=== PATIENT | male | born 1955 | race Caucasian/White ===

== ENCOUNTER → 2020-07-24 | Outpatient (CLI) | payer OTHER ==
[~2020-07-24] MED LIST: AMLODIPINE10 MG PO; CEPHALEXIN500 M1 PO; SUNMARK OMEPRAZ20 MG PO; VITAMIN D-32000 UNIT PO
[2020-07-24 10:37] LABS: BASO # 0.1 10*3/uL (0.0-0.1); BASO % 0.8 % (0.0-1.0); EOS # 0.3 10*3/uL (0.0-0.4); EOS % 3.4 % (1.0-4.0); HEMATOCRIT 46.4 % (42.0-52.0); LYMPH # 2.3 10*3/uL (1.3-4.4); LYMPH % 29.8 % (27.0-41.0); MEAN CELL VOLUME 89.9 fl (80.0-94.0); MEAN CORPUSCULAR HGB 30.4 pg (27.0-31.0); MEAN CORPUSCULAR HGB CONC 33.8 g/dl (33.0-37.0); MEAN PLATELET VOLUME 10.1 fl (9.6-12.3); MONO # 0.6 10*3/uL (0.1-1.0); MONO % 7.4 % (3.0-9.0); NEUT # 4.4 10*3/uL (2.3-7.9); NEUT % 58.3 % (47.0-73.0); PLATELET COUNT AUTOMATED 258 10*3/uL (130-400); RED BLOOD COUNT 5.16 10*6/uL (4.50-5.90); RED CELL DISTRI WIDTH 12.2 % (0-14.5); WHITE BLOOD COUNT 7.6 10*3/uL (4.8-10.8)
[2020-07-24 11:03] LABS: ALBUMIN 3.2 gm/dl (3.1-4.5); BUN 10 mg/dl (7-24); CHLORIDE 104 mmol/L (98-107); CHOLESTEROL 188 mg/dL (<200); CREATININE 0.74 mg/dL (0.70-1.30); HDL CHOLESTEROL 38 mg/dl (40-60); LDL CHOLESTEROL 119 mg/dL (9-159); POTASSIUM 3.9 mmol/L (3.5-5.1); SGOT/AST 25 IU/L (3-35); SGPT/ALT 42 U/L (12-78); SODIUM 138 mmol/L (136-145); TOTAL PROTEIN 7.2 gm/dL (6.4-8.2); TRIGLYCERIDES 156 mg/dl (<150); VLDL CHOLESTEROL 31 mg/dL (6-40)
[2020-07-24 11:09] LABS: ALKALINE PHOSPHATASE 113 U/L (45-117); FREE T4 0.96 ng/dl (0.76-1.46); VITAMIN D, 25-HYDROXY 25.7 ng/mL (30-100)
[2020-07-25 10:11] LABS: CREATININE,URINE 85.7 mg/dL (Not Estab.)
== END | disposition home or self-care (01) ==
LOC: LAB 10:11
PROVIDERS: ATTEND Internal Medicine
DX: R05 Cough (principal); I10 Essential (primary) hypertension

== ENCOUNTER → 2021-11-01 | Outpatient (CLI) | payer OTHER | END | disposition home or self-care (01) | LOC: COVID19 15:36 | PROVIDERS: ATTEND Internal Medicine | DX: Z11.52 Encounter for screening for COVID-19 (principal) ==

== ENCOUNTER → 2022-03-21 | Outpatient (CLI) | payer OTHER | END | disposition home or self-care (01) | LOC: US 09:00 | PROVIDERS: ATTEND Internal Medicine | DX: I73.9 Peripheral vascular disease, unspecified (principal); L03.115 Cellulitis of right lower limb; R16.2 Hepatomegaly with splenomegaly, not elsewhere classified; K76.0 Fatty (change of) liver, not elsewhere classified; L03.116 Cellulitis of left lower limb ==

== ENCOUNTER → 2022-03-25 | Outpatient (CLI) | payer OTHER ==
[2022-03-25 10:31] LABS: BASO # 0.1 10*3/uL (0.0-0.1); BASO % 1.2 % (0.0-1.0); EOS # 0.3 10*3/uL (0.0-0.4); EOS % 4.5 % (1.0-4.0); HEMATOCRIT 45.4 % (42.0-52.0); LYMPH # 2.3 10*3/uL (1.3-4.4); LYMPH % 33.2 % (27.0-41.0); MEAN CELL VOLUME 89.2 fl (80.0-94.0); MEAN CORPUSCULAR HGB 30.8 pg (27.0-31.0); MEAN CORPUSCULAR HGB CONC 34.6 g/dl (33.0-37.0); MEAN PLATELET VOLUME 10.3 fl (9.6-12.3); MONO # 0.6 10*3/uL (0.1-1.0); MONO % 8.2 % (3.0-9.0); NEUT # 3.6 10*3/uL (2.3-7.9); NEUT % 52.6 % (47.0-73.0); PLATELET COUNT AUTOMATED 217 10*3/uL (130-400); RED BLOOD COUNT 5.09 10*6/uL (4.50-5.90); RED CELL DISTRI WIDTH 12.1 % (0-14.5); WHITE BLOOD COUNT 6.9 10*3/uL (4.8-10.8)
[2022-03-25 10:48] LABS: ALKALINE PHOSPHATASE 124 U/L (45-117); BUN 16 mg/dl (7-24); CHLORIDE 104 mmol/L (98-107); CREATININE 0.83 mg/dL (0.70-1.30); SGOT/AST 15 IU/L (3-35); SGPT/ALT 37 U/L (12-78); SODIUM 137 mmol/L (136-145)
== END | disposition home or self-care (01) ==
LOC: LAB 09:45
PROVIDERS: ATTEND Urology
DX: Z12.5 Encounter for screening for malignant neoplasm of prostate (principal); D40.0 Neoplasm of uncertain behavior of prostate; R53.83 Other fatigue

== ENCOUNTER → 2023-12-09 | Outpatient (CLI) | payer OTHER | END | disposition home or self-care (01) | LOC: US 01:48 | PROVIDERS: ATTEND Internal Medicine | DX: R22.43 Localized swelling, mass and lump, lower limb, bilateral (principal) ==

== ENCOUNTER → 2023-12-20 | Outpatient (CLI) | payer OTHER ==
[~2023-12-20] MED LIST changes: +AMLODIPINE BESY10 MG PO; -AMLODIPINE10 MG PO; +FLOMAX0.4 MG PO; +GLUMETZA1000 MG PO; +LASIX40 MG PO; +LIPITOR40 MG PO; +ONE DAILY FOR1 EAC1 PO; +PROTONIX40 M1 IV
== END | disposition home or self-care (01) ==
LOC: CARD 00:51
PROVIDERS: ATTEND Internal Medicine
DX: R06.09 Other forms of dyspnea (principal)

== ENCOUNTER → 2024-02-16 | Outpatient (CLI) | payer OTHER | END | disposition home or self-care (01) | LOC: US 01:56 | PROVIDERS: ATTEND Internal Medicine | DX: I73.9 Peripheral vascular disease, unspecified (principal) ==

== ENCOUNTER → 2025-04-12 | Outpatient (CLI) | payer MEDICARE ==
[~2025-04-12] MED LIST changes: +APRESOLINE25 MG PO; +DOXYCYCLINE HY100 M3 PO; +GLIPIZIDE5 MG PO; +LORATADINE-D 11 EACH PO; +OMEPRAZOLE10 MG PO
[2025-04-12 09:38] LABS: BASO # 0.1 10*3/uL (0.0-0.1); EOS # 0.2 10*3/uL (0.0-0.4); EOS % 2.4 % (1.0-4.0); HEMATOCRIT 47.1 % (42.0-52.0); MEAN CELL VOLUME 91.5 fl (80.0-94.0); MEAN CORPUSCULAR HGB 31.1 pg (27.0-31.0); MEAN PLATELET VOLUME 10.2 fl (9.6-12.3); MONO # 0.6 10*3/uL (0.1-1.0); MONO % 7.7 % (3.0-9.0); NEUT # 4.5 10*3/uL (2.3-7.9); NEUT % 56.9 % (47.0-73.0); PLATELET COUNT AUTOMATED 233 10*3/uL (130-400); RED BLOOD COUNT 5.15 10*6/uL (4.50-5.90); RED CELL DISTRI WIDTH 12.3 % (0-14.5); WHITE BLOOD COUNT 7.9 10*3/uL (4.8-10.8)
[2025-04-12 10:06] LABS: ALKALINE PHOSPHATASE 90 U/L (46-116); BUN 19 mg/dl (9-23); CHLORIDE 102 mmol/L (98-107); CHOLESTEROL 119 mg/dL (<200); FREE T4 1.17 ng/dl (0.89-1.76); LDL CHOLESTEROL 60 mg/dL (9-159); POTASSIUM 4.1 mmol/L (3.4-5.1); SGPT/ALT 51 U/L (5-49); TOTAL PROTEIN 7.5 gm/dL (6.0-8.0); TRIGLYCERIDES 93 mg/dl (<150)
[2025-04-12 10:27] LABS: VITAMIN D, 25-HYDROXY 40.5 ng/mL (30-100)
== END | disposition home or self-care (01) ==
LOC: LAB 08:49
PROVIDERS: ATTEND Internal Medicine
DX: Z12.5 Encounter for screening for malignant neoplasm of prostate (principal); M25.762 Osteophyte, left knee; M17.12 Unilateral primary osteoarthritis, left knee; E11.9 Type 2 diabetes mellitus without complications; Z11.59 Encounter for screening for other viral diseases; R06.09 Other forms of dyspnea; M25.561 Pain in right knee; M25.562 Pain in left knee

== ENCOUNTER → 2025-04-18 | Outpatient (CLI) | payer MEDICARE ==
[2025-04-19 05:06] LABS: HBsAG SCREEN Negative (Negative); HEP B CORE Ab, IgM Negative (Negative)
[2025-04-19 21:06] LABS: HEPATITIS C QNT HCV Not Detected IU/mL (.)
[2025-04-21 14:07] LABS: HCV Ab Reactive (Non Reactive)
== END | disposition home or self-care (01) ==
LOC: LAB 09:54
PROVIDERS: ATTEND Internal Medicine
DX: R76.8 Other specified abnormal immunological findings in serum (principal); E11.9 Type 2 diabetes mellitus without complications; R53.83 Other fatigue; R06.09 Other forms of dyspnea; R74.01 Elevation of levels of liver transaminase levels; Z79.899 Other long term (current) drug therapy

== ENCOUNTER → 2025-05-01 | Outpatient (CLI) | payer MEDICARE | END | disposition home or self-care (01) | LOC: US 04-28 01:06 | PROVIDERS: ATTEND Internal Medicine | DX: K76.0 Fatty (change of) liver, not elsewhere classified (principal); R76.8 Other specified abnormal immunological findings in serum ==

== ENCOUNTER → 2025-06-12 | Outpatient (CLI) | payer MEDICARE | END | disposition home or self-care (01) | LOC: CARD 11:43 | PROVIDERS: ATTEND Internal Medicine Cardiovascular Disease | DX: I48.91 Unspecified atrial fibrillation (principal); R06.09 Other forms of dyspnea ==

== ENCOUNTER → 2025-06-17 | Outpatient (CLI) | payer MEDICARE ==
[~2025-06-17] MED LIST changes: +Regadenoson 0.4 MG/5 ML SYR IV ONE
== END | disposition home or self-care (01) ==
LOC: CARD 01:42
PROVIDERS: ATTEND Internal Medicine Cardiovascular Disease
DX: I48.91 Unspecified atrial fibrillation (principal); R06.09 Other forms of dyspnea; R06.02 Shortness of breath